=== PATIENT | female | born 1950 | race American Indian/Alaskan Native ===

== ENCOUNTER 2017-06-29 11:38 | Inpatient (IN) | payer SELFPAY ==
[2017-06-29 12:37] LABS: Basophils % (Auto) 0.2 % (0.0-1.8); Eosinophils % (Auto) 1.4 % (0.0-4.3); Hematocrit 36.3 % (30.3-42.9); Hemoglobin 12.3 gm/dl (10.1-14.3); Mean Corpuscular HGB Conc 34 % (30-34); Mean Corpuscular Hemoglobin 34 pg (28-32); Mean Corpuscular Volume 101 fl (79-97); Platelet Count 206 K/mm3 (140-440); Red Cell Distribution Width 12.7 % (13.2-15.2); White Blood Count 7.3 K/mm3 (4.5-11.0)
[2017-06-29 12:40] LABS: Anion Gap 17 mmol/L; BUN/Creatinine Ratio 17.14; Blood Urea Nitrogen 12 mg/dL (7-17); Calcium 9.5 mg/dL (8.4-10.2); Carbon Dioxide 29 mmol/L (22-30); Chloride 99.9 mmol/L (98-107); Glucose 110 mg/dL (65-100); Potassium 4.7 mmol/L (3.6-5.0); Sodium 141 mmol/L (137-145)
[2017-06-29] MEDS ORDERED: BABY ASPIRIN PO ONE (13:58)
[2017-06-29] MEDS ORDERED: APRESOLINE IV ONE (13:58)
[2017-06-29] MEDS ORDERED: ASPIRIN ONE (13:58)
--- NOTE | 2017-06-29 14:13 | Emergency Department Report ---
HPI - General Chief Complaint: Chest Pain Time Seen by Provider: 06/29/17 13:41 - HPI HPI: This is a 67-year-old Afro-[place] female presents to the emergency department , dropped off by her son, with complaint of midsternal and left-sided chest pain has been going since last night as well as very elevated blood pressure. The patient says that she had a history of blood pressure diagnosed one time here at [facility] but has never been on any blood pressure medications. She also does not see a primary care physician and has not for many years. She denies tobacco or illicit drug use or abuse. She says that she generally cooks for herself and eats healthy. She did not take anything for her symptoms other than drinking red tea and that did not help. The pain appears to increase with certain movements. She does admit to some stress at home regarding her family and her children. The pain is a pressure sensation that radiates towards the neck and back. No recent travel or sick contacts at home. ED Past Medical Hx - Past Medical History Previous Medical History?: No - Surgical History Past Surgical History?: No - Social History Smoking Status: Never Smoker Substance Use Type: None - Medications Home Medications: Home Medications Medication Instructions Recorded Confirmed Last Taken Type No Known Home Medications [No 06/29/17 06/29/17 Unknown History Reported Home Medications] ED Review of Systems ROS: Stated complaint: CHEST PAIN Other details as noted in HPI Comment: All other systems reviewed and negative Constitutional: denies: chills, fever Eyes: denies: eye pain, eye discharge, vision change ENT: denies: ear pain, throat pain Respiratory: denies: cough, wheezing Cardiovascular: chest pain. denies: edema Gastrointestinal: denies: abdominal pain, nausea, diarrhea Genitourinary: denies: urgency, dysuria, discharge Musculoskeletal: denies: back pain, joint swelling, arthralgia Skin: denies: rash, lesions Neurological: denies: headache, weakness, paresthesias Physical Exam - Physical Exam Vital Signs: Vital Signs 06/29/17 06/29/17 06/29/17 11:50 13:28 14:09 Temperature 97.5 F L Pulse Rate 57 L 53 L Respiratory 20 Rate Blood Pressure 231/103 199/104 Blood Pressure 228/100 [Right] O2 Sat by Pulse 100 Oximetry Physical Exam: GENERAL: The patient is well-developed well-nourished. HEENT: Normocephalic. Atraumatic. Extraocular motions are intact. Patient has moist mucous membranes. NECK: Supple. No meningitic signs are noted. There is no adenopathy noted. CHEST/LUNGS: Clear to auscultation. There is no respiratory distress noted. HEART/CARDIOVASCULAR: Regular. There is no tachycardia. There is no gallop rub or murmur. ABDOMEN: Abdomen is soft, nontender. Patient has normal bowel sounds. There is no abdominal distention. SKIN: There is no rash. There is no edema. There is no diaphoresis. NEURO: The patient is awake, alert, and oriented. The patient is cooperative. The patient has no focal neurologic deficits. The patient has normal speech. MUSCULOSKELETAL: There is no tenderness or deformity. There is no limitation range of motion. There is no evidence of acute injury. ED Course Vital Signs 06/29/17 06/29/17 06/29/17 11:50 13:28 14:09 Temperature 97.5 F L Pulse Rate 57 L 53 L Respiratory 20 Rate Blood Pressure 231/103 199/104 Blood Pressure 228/100 [Right] O2 Sat by Pulse 100 Oximetry ED Medical Decision Making - Lab Data Result diagrams: 06/29/17 11:57 06/29/17 11:57 - EKG Data -: EKG Interpreted by Ga EKG shows normal: sinus rhythm, axis, intervals, QRS complexes, ST-T waves ( nonspecific T waves) - EKG Data When compared to previous EKG there are: previous EKG unavailable Interpretation: other (sinus rhythm, normal axis, normal rate, nonspecific T waves) - Radiology Data Radiology results: image reviewed interpreted by me: Chest x-ray did not show any acute process. Heart is normal shape and size. No effusions. No pneumothorax. No signs of pneumonia seen. - Medical Decision Making 67-year-old female presents emergency Department with chest pain, intermittent shortness of breath and presents with hypertensive urgency. She does not have a primary care doctor and has not for many years. EKG does not show any signs of ST elevation CO. Labs are so far unremarkable including negative troponin and negative d-dimer. However she'll be admitted to the hospital for further evaluation and either a stress test or cardiac consultation. She has been accepted for admission by the hospitalist, Dr. Pandey. - Differential Diagnosis CO, PE, costochondritis, pneumonia, CHF Critical Care Time: No Critical care attestation.: If time is entered above; I have spent that time in minutes in the direct care of this critically ill patient, excluding procedure time. ED Disposition Clinical Impression: Hypertensive urgency Chest pain Qualifiers: Chest pain type: unspecified Qualified Code(s): R07.9 - Chest pain, unspecified Disposition: 09 OP ADMIT IP TO THIS HOSP Is pt being admited?: Yes Condition: Stable
--- NOTE | 2017-06-29 14:23 | XRay Report ---
AP CHEST: HISTORY: chest pain AP view of the chest demonstrates a normal mediastinal and cardiac contour with clear lungs and normal bony and soft tissue structures. IMPRESSION: Unremarkable AP chest.
[2017-06-29] MEDS ORDERED: MORPHINE IV ONE (15:28)
[2017-06-29] MEDS ORDERED: MORPHINE ONE (15:51)
[2017-06-29] MEDS ORDERED: TORADOL IV ONE (16:05)
--- NOTE | 2017-06-29 18:14 | Admit Criteria Form ---
Admission Criteria Documentation: CHEST PAIN Clinical Indications for Admission to Inpatient Care (Place 'X' for any and all applicable criteria): Admission is indicated for chest pain and ANY ONE of the following(1)(2)(3)(4)(5 ): [ ]I. Angina with acute coronary syndrome (Also use Myocardial Infarction or Angina guideline) [ ]II. Hemodynamic instability [ ]III. Angina needing acute intervention as indicated by ALL of the following( 11)(12): [ ]a) Unstable angina is present as indicated by angina that is ANY ONE of the following: [ ]i) New onset [ ]ii) Nocturnal [ ]iii) Prolonged at rest [ ]iv) Progressive [ ]b) Angina warrants acute intervention as indicated by ANY ONE of the following: [ ]i) Recurrent angina (e.g, not responding as previously to treatment) [ ]ii) Angina at rest or with low-level activities despite initial medical therapy [ ]iii) New or presumably new ST-segment depression on ECG [ ]iv) Signs or symptoms of heart failure (eg, dyspnea, pulmonary edema) [ ]v) New or worsening mitral regurgitation [ ]vi) Hemodynamic instability [ ]vii) Dangerous arrhythmia (eg, sustained ventricular tachycardia) [ ]viii) History of percutaneous coronary intervention within 6 months [ ]ix) History of coronary artery bypass graft surgery [ ]x) SUNNY risk score of 2 or greater[A] [ ]xi) History of Diabetes(14) [ ]xii) High-risk cardiac ischemia findings on noninvasive testing (e.g, echocardiogram, treadmill testing, nuclear scan) [ ]xiii) Chronic renal insufficiency (ie, estimated GFR less than 60 mL/min/1.732m) [ ]xiv) Left ventricular ejection fraction less than 40% [ ]IV. Evidence of [place] (eg, cardiac biomarkers positive, ST-segment elevation on ECG) also use Myocardial Infarction Criteria Form. [ ]V. Pulmonary edema [ ]. Respiratory distress [ ]VII. Chest pain indicative of serious diagnosis other than coronary artery disease (eg, aortic dissection) [ ]VIII. Contraindications and/or Inappropriate clinical situations for Observational Care in patients with Chest Pain, when ANY ONE of the following is required: [ ]a) Patient with risk factor for pulmonary embolism, acute coronary syndrome and myocardial infarction (18) [ ]b) Patient with Pulmonary embolism require an average LOS of 4.3 days, therefore emergency department observation management is inappropriate 18,23 [ ]c) Painful condition/s in the elderly, have the highest rate of recidivism after emergency department observation management (10.8%) 20,21,22 [ ]d) Elevated cardiac biomarker requires intensive and exhaustive care (19) [X]IX. General contraindications and/or Inappropriate clinical situations for Observational Care in patients with Chest Pain, when ANY ONE of the following is required: [ ]a) Prediction of prolongation of LOS based on ANY ONE of the following may be considered as a contraindication for observational care 2, 3, 4, 5, 6, 7, 8, 9, 10, 11 [ ]i) Age > 65 yrs. [ ]ii) Patient arriving by ambulance [ ]iii) Patient with high acuity [ ]iv) Patient requiring vital sign monitoring [ ]v) Patient on IV medication [X]b) Systolic blood pressures 180mmHg 3,12 [ ]c) Patient with altered mental status including delirium and other alteration of consciousness, (3) [ ]d) Patient whose discharge disposition will be to a fpc home or rehabilitation home should not be managed in Emergency Department Observation Unit. CMS rule requires 3 days hospital stay before such placement. 3,13 [ ]e) Patient with failure to thrive due to broad array of etiologies 3,16,17 [ ]f) Inability to ambulate 3,14 Extended stay beyond goal length of stay may be needed for (1)(28): [ ]a) Specific condition diagnosed after evaluation (eg, pulmonary embolism, aortic dissection) [ ]b) Unstable angina [ ]c) Continued suspicion of acute coronary syndrome with inability to complete needed cardiac evaluation (eg, patient clinically unable to undergo stress testing) [ ]d) Myocardial infarction (Contents from ANGINA and CHEST PAIN clinical indications for admission to inpatient care have been integrated in this form) The original [employer] content created by [employer] has been revised. The portions of the content which have been revised are identified through the use of italic text or in bold, and [employer] has neither reviewed nor approved the modified material. All other unmodified content is copyright [employer]. Please see references footnoted in the original [employer] edition 2016 Admission Criteria Met: Yes
--- NOTE | 2017-06-29 22:00 | History and Physical Report ---
History of Present Illness Date of examination: 06/29/17 Date of admission: 06/29/17 15:28 Chief complaint: Chest pain since AM History of present illness: 67 y/o Female with hx of HTN not on any medicicine developed retrosternal chest pain since am.Non radiating.No diaphoresis palpitations or SOB. No exacerbating or relieving factors. Past History Past Medical History: hypertension Past Surgical History: No surgical history Social history: no significant social history, lives with family Family history: hypertension Medications and Allergies Allergies Allergy/AdvReac Type Severity Reaction Status Date / Time No Known Allergies Allergy Verified 06/29/17 11:50 Home Medications Medication Instructions Recorded Confirmed Last Taken Type No Known Home Medications [No 06/29/17 06/29/17 Unknown History Reported Home Medications] Active Meds: Active Medications Heparin Sodium (Porcine) (Heparin) 5,000 unit SUB-Q Q8HR SLADE Review of Systems All systems: negative Constitutional: no weight loss, no weight gain, no fever, no chills, no sweats, no night sweats Ears, nose, mouth and throat: no dysphagia, no hoarseness, no sore throat Cardiovascular: chest pain, no orthopnea, no palpitations, no rapid/irregular heart beat, no edema, no syncope, no lightheadedness, no shortness of breath Respiratory: no cough, no cough with sputum, no excessive sputum, no hemoptysis , no shortness of breath, no dyspnea on exertion Gastrointestinal: no abdominal pain, no nausea, no vomiting, no diarrhea, no constipation, no change in bowel habits, no hematemesis, no coffee ground emesis Genitourinary Female: no dysuria, no urinary frequency, no urgency, no stress incontinence Musculoskeletal: no neck stiffness, no neck pain, no shooting arm pain, no arm numbness/tingling, no low back pain, no shooting leg pain, no leg numbness/ tingling, no redness of joints Integumentary: no rash, no pruritis, no redness, no sores, no wounds, no jaundice, no boils, no blisters Neurological: no seizures, no syncope Psychiatric: no anxiety, no memory loss, no change in sleep habits, no sleep disturbances, no insomnia, no hypersomnia, no change in appetite, no change in libido Endocrine: no cold intolerance, no heat intolerance, no polyphagia, no excessive thirst, no polydipsia, no polyuria, no nocturia, no excessive sweating , no flushing, no weight change Hematologic/Lymphatic: no easy bruising, no easy bleeding Allergic/Immunologic: no urticaria, no allergic rhinitis, no wheezing Exam - Constitutional Vitals: Temp Pulse Resp BP Pulse Ox 98.6 F 59 L 18 205/91 97 06/29/17 21:22 06/29/17 21:22 06/29/17 21:22 06/29/17 21:22 06/29/17 21:22 General appearance: Present: no acute distress, well-nourished - EENT Eyes: Present: PERRL ENT: hearing intact, clear oral mucosa - Neck Neck: Present: supple, normal ROM - Respiratory Respiratory effort: normal Respiratory: bilateral: CTA - Cardiovascular Heart rate: 58 Rhythm: regular Heart Sounds: Present: S1 & S2. Absent: rub, click - Extremities Extremities: no ischemia, pulses intact, pulses symmetrical, No edema Peripheral Pulses: within normal limits - Abdominal General gastrointestinal: Present: soft, non-tender, non-distended, normal bowel sounds Female genitourinary: Present: normal - Integumentary Integumentary: Present: clear, warm, dry - Musculoskeletal Musculoskeletal: gait normal, strength equal bilaterally - Psychiatric Psychiatric: appropriate mood/affect, intact judgment & insight - Neurologic Neurologic: CNII-XII intact, moves all extremities - Allied Health Allied health notes reviewed: nursing, social work, case management Results - Labs CBC & Chem 7: 06/29/17 11:57 06/30/17 04:42 Labs: Laboratory Last Values WBC 7.3 K/mm3 (4.5-11.0) 06/29/17 11:57 RBC 3.60 M/mm3 (3.65-5.03) L 06/29/17 11:57 Hgb 12.3 gm/dl (10.1-14.3) 06/29/17 11:57 Hct 36.3 % (30.3-42.9) 06/29/17 11:57 MCV 101 fl (79-97) H 06/29/17 11:57 MCH 34 pg (28-32) H 06/29/17 11:57 MCHC 34 % (30-34) 06/29/17 11:57 RDW 12.7 % (13.2-15.2) L 06/29/17 11:57 Plt Count 206 K/mm3 (140-440) 06/29/17 11:57 Lymph % (Auto) 28.1 % (13.4-35.0) 06/29/17 11:57 Ritchie % (Auto) 8.7 % (0.0-7.3) H 06/29/17 11:57 Eos % (Auto) 1.4 % (0.0-4.3) 06/29/17 11:57 Baso % (Auto) 0.2 % (0.0-1.8) 06/29/17 11:57 Lymph # 2.1 K/mm3 (1.2-5.4) 06/29/17 11:57 Ritchie # 0.6 K/mm3 (0.0-0.8) 06/29/17 11:57 Eos # 0.1 K/mm3 (0.0-0.4) 06/29/17 11:57 Baso # 0.0 K/mm3 (0.0-0.1) 06/29/17 11:57 Seg Neutrophils % 61.6 % (40.0-70.0) 06/29/17 11:57 Seg Neutrophils # 4.5 K/mm3 (1.8-7.7) 06/29/17 11:57 D-Dimer 168.29 ng/mlDDU (0-234) 06/29/17 13:52 Sodium 141 mmol/L (137-145) 06/29/17 11:57 Potassium 4.7 mmol/L (3.6-5.0) 06/29/17 11:57 Chloride 99.9 mmol/L (98-107) 06/29/17 11:57 Carbon Dioxide 29 mmol/L (22-30) 06/29/17 11:57 Anion Gap 17 mmol/L 06/29/17 11:57 BUN 12 mg/dL (7-17) 06/29/17 11:57 Creatinine 0.7 mg/dL (0.7-1.2) 06/29/17 11:57 Estimated GFR > 60 ml/min 06/29/17 11:57 BUN/Creatinine Ratio 17.14 % 06/29/17 11:57 Glucose 110 mg/dL (65-100) H 06/29/17 11:57 Calcium 9.5 mg/dL (8.4-10.2) 06/29/17 11:57 Troponin T < 0.010 ng/mL (0.00-0.029) 06/29/17 17:59 Short CBC 06/29/17 Range/Units 11:57 WBC 7.3 (4.5-11.0) K/mm3 Hgb 12.3 (10.1-14.3) gm/dl Hct 36.3 (30.3-42.9) % Plt Count 206 (140-440) K/mm3 BMP 06/29/17 06/30/17 11:57 04:42 Sodium 141 142 Potassium 4.7 4.4 Chloride 99.9 101.4 Carbon Dioxide 29 27 BUN 12 19 H Creatinine 0.7 1.2 D Glucose 110 H 87 Calcium 9.5 9.6 Cardiac Enzymes 06/29/17 06/29/17 06/29/17 Range/Units 11:57 16:07 17:59 Total Creatine Kinase (30-135) units/L CK-MB (CK-2) (0.0-4.0) ng/mL Troponin T < 0.010 < 0.010 < 0.010 (0.00-0.029) ng/mL 06/29/17 06/30/17 Range/Units 22:26 04:42 Total Creatine Kinase 86 79 (30-135) units/L CK-MB (CK-2) < 1.0 < 1.0 (0.0-4.0) ng/mL Troponin T < 0.010 < 0.010 (0.00-0.029) ng/mL Liver Function 06/30/17 Range/Units 04:42 Total Bilirubin 0.60 (0.1-1.2) mg/dL AST 19 (5-40) units/L ALT 11 (7-56) units/L Alkaline Phosphatase 72 (35-129) units/L Albumin 3.9 (3.9-5) g/dL - Imaging and Cardiology EKG: report reviewed (Sinus Bradycardia 59/ min Non specific T wave abnormality) Assessment and Plan Advance Directives: Yes (Full code) VTE prophylaxis?: Chemical Plan of care discussed with patient/family: Yes - Patient Problems (1) Hypertensive urgency Current Visit: Yes Status: Acute Plan to address problem: Patient started on coreg 12.5 q12 and Amlodipine 10 mg po qd.Also Hydralazine 10 mg q3 prnIV (2) Chest pain Current Visit: Yes Status: Acute Qualifiers: Chest pain type: unspecified Ischemic chest pain type: I Qualified Code(s ): R07.9 - Chest pain, unspecified Plan to address problem: Chest pain r/o [facility] work up.DDx of GERD and costochondritis.Serial cardiac enzymes and Lexiscan in AM (3) DVT prophylaxis Current Visit: Yes Status: Acute Plan to address problem: Lovenox 40 mg sq qd
[2017-06-29] MEDS ORDERED: TYLENOL PO PRN (22:01)
[2017-06-29] MEDS ORDERED: MILK OF MAGNESIA PO PRN (22:01)
[2017-06-29] MEDS ORDERED: DULCOLAX PR PRN (22:01)
[2017-06-29] MEDS ORDERED: DILAUDID IV PRN (22:01)
[2017-06-29] MEDS ORDERED: ZOFRAN IV PRN (22:01)
[2017-06-29] MEDS: HEPARIN SUB-Q SCH (22:19)
[2017-06-29] MEDS: PERCOCET 5/325 PO PRN (22:25)
[2017-06-29] MEDS: COREG PO SCH (22:25)
[2017-06-30 00:11] LABS: Creatine Kinase 86 units/L (30-135)
[2017-06-30 00:19] LABS: Creatine Kinase MB < 1.0 ng/mL (0.0-4.0)
[2017-06-30] MEDS: HEPARIN SUB-Q SCH ×3 (06:25→23:16)
[2017-06-30] MEDS: PERCOCET 5/325 PO PRN ×2 (06:25→14:45)
[2017-06-30 06:38] LABS: Albumin 3.9 g/dL (3.9-5); Albumin/Globulin Ratio 0.9 %; BUN/Creatinine Ratio 15.83; Bilirubin,Total 0.6 mg/dL (0.1-1.2); Calcium 9.6 mg/dL (8.4-10.2); Chloride 101.4 mmol/L (98-107); Potassium 4.4 mmol/L (3.6-5.0); Total Protein 8.2 g/dL (6.3-8.2)
[2017-06-30 06:40] LABS: Creatine Kinase 79 units/L (30-135)
[2017-06-30 06:45] LABS: Creatine Kinase MB < 1.0 ng/mL (0.0-4.0)
[2017-06-30] MEDS ORDERED: LEXISCAN IV ONE ×2 (09:26→09:30)
[2017-06-30] MEDS: ZESTRIL PO SCH (11:46)
[2017-06-30] MEDS: HCTZ PO SCH (11:46)
[2017-06-30] MEDS: NORVASC PO SCH (11:46)
[2017-06-30] MEDS ORDERED: APRESOLINE IV PRN (15:16)
--- NOTE | 2017-06-30 17:58 | Progress Note ---
Assessment and Plan Assessment and plan: 67-year-old woman with no significant Past medical history who presents with chest pain found to have elevated BP SBP>200 on triage. Hypertensive urgency Optimize blood pressure medications, and hydralazine IV as needed Case management to provide her resources that she is uninsured Chest pain ACS was ruled out, MPI was done today and was negative for ischemia Chest pain is most likely due to hypertensive urgency DVT prophylaxis Lovenox 40 mg sq qd History Interval history: She continues to complain of mild headache which she describes as global, throbbing, 4 out of 10. She also has some atypical right-sided chest pain which is dull cons and goes and has actually been resolving. Hospitalist Physical - Physical exam Narrative exam: General: Patient appears well in no distress HEENT: MMM, EOMI cardiac: S1-S2 heard lungs: clear to auscultation, abdomen: soft, nontender, nondistended bowel sounds positive extremities: no edema clubbing or cyanosis Skin: no rash or lesion Neuro: no focal deficit Psych: appropriate behavior and mood, cognition intact - Constitutional Vitals: Temp Pulse Resp BP Pulse Ox 97.9 F 54 L 18 186/83 99 06/30/17 11:35 06/30/17 11:46 06/30/17 11:35 06/30/17 11:46 06/30/17 11:35 General appearance: Present: no acute distress, well-nourished Results - Labs CBC & Chem 7: 06/29/17 11:57 06/30/17 04:42 Labs: Laboratory Last Values WBC 7.3 K/mm3 (4.5-11.0) 06/29/17 11:57 RBC 3.60 M/mm3 (3.65-5.03) L 06/29/17 11:57 Hgb 12.3 gm/dl (10.1-14.3) 06/29/17 11:57 Hct 36.3 % (30.3-42.9) 06/29/17 11:57 MCV 101 fl (79-97) H 06/29/17 11:57 MCH 34 pg (28-32) H 06/29/17 11:57 MCHC 34 % (30-34) 06/29/17 11:57 RDW 12.7 % (13.2-15.2) L 06/29/17 11:57 Plt Count 206 K/mm3 (140-440) 06/29/17 11:57 Lymph % (Auto) 28.1 % (13.4-35.0) 06/29/17 11:57 Waldo % (Auto) 8.7 % (0.0-7.3) H 06/29/17 11:57 Eos % (Auto) 1.4 % (0.0-4.3) 06/29/17 11:57 Baso % (Auto) 0.2 % (0.0-1.8) 06/29/17 11:57 Lymph # 2.1 K/mm3 (1.2-5.4) 06/29/17 11:57 Waldo # 0.6 K/mm3 (0.0-0.8) 06/29/17 11:57 Eos # 0.1 K/mm3 (0.0-0.4) 06/29/17 11:57 Baso # 0.0 K/mm3 (0.0-0.1) 06/29/17 11:57 Seg Neutrophils % 61.6 % (40.0-70.0) 06/29/17 11:57 Seg Neutrophils # 4.5 K/mm3 (1.8-7.7) 06/29/17 11:57 D-Dimer 168.29 ng/mlDDU (0-234) 06/29/17 13:52 Sodium 142 mmol/L (137-145) 06/30/17 04:42 Potassium 4.4 mmol/L (3.6-5.0) 06/30/17 04:42 Chloride 101.4 mmol/L (98-107) 06/30/17 04:42 Carbon Dioxide 27 mmol/L (22-30) 06/30/17 04:42 Anion Gap 17 mmol/L 06/29/17 11:57 BUN 19 mg/dL (7-17) H 06/30/17 04:42 Creatinine 1.2 mg/dL (0.7-1.2) D 06/30/17 04:42 Estimated GFR 54 ml/min 06/30/17 04:42 BUN/Creatinine Ratio 15.83 % 06/30/17 04:42 Glucose 87 mg/dL (65-100) 06/30/17 04:42 Calcium 9.6 mg/dL (8.4-10.2) 06/30/17 04:42 Total Bilirubin 0.60 mg/dL (0.1-1.2) 06/30/17 04:42 AST 19 units/L (5-40) 06/30/17 04:42 ALT 11 units/L (7-56) 06/30/17 04:42 Alkaline Phosphatase 72 units/L (35-129) 06/30/17 04:42 Total Creatine Kinase 79 units/L (30-135) 06/30/17 04:42 CK-MB (CK-2) < 1.0 ng/mL (0.0-4.0) 06/30/17 04:42 CK-MB (CK-2) Rel Index 1.2 (0-4) 06/30/17 04:42 Troponin T < 0.010 ng/mL (0.00-0.029) 06/30/17 04:42 Total Protein 8.2 g/dL (6.3-8.2) 06/30/17 04:42 Albumin 3.9 g/dL (3.9-5) 06/30/17 04:42 Albumin/Globulin Ratio 0.9 % 06/30/17 04:42
[2017-06-30] MEDS: COREG PO SCH (20:45)
--- NOTE | 2017-07-01 03:24 | Treadmill Report ---
THALLIUM STRESS TEST LEFT VENTRICLE: Left ventricular chamber size is within normal. Perfusion study demonstrates homogeneous uptake of the tracer in all segments, no significant perfusion defects identified. Gated analysis demonstrates normal left ventricular systolic function, ejection fraction 67%. CONCLUSION: Normal myocardial perfusion study. JOB# [id number] CA/NTS
[2017-07-01] MEDS: HEPARIN SUB-Q SCH ×2 (07:21→14:00)
--- NOTE | 2017-07-01 07:56 | Discharge Summary ---
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 Hypertensive urgency Optimize blood pressure medications, and hydralazine IV as needed Case management to provide her resources that she is uninsured Chest pain ACS was ruled out, MPI was done today and was negative for ischemia Chest pain is most likely due to hypertensive urgency DVT prophylaxis Lovenox 40 mg sq qd Disposition: DC- TO HOME OR SELFCARE Time spent for discharge: 32 minutes Core Measure Documentation - Palliative Care Palliative Care/ Comfort Measures: Not Applicable - Core Measures Any of the following diagnoses?: none Exam - Constitutional Vitals: Temp Pulse Resp BP Pulse Ox 98.5 F 53 L 18 196/86 96 07/01/17 05:33 07/01/17 05:33 07/01/17 05:33 07/01/17 05:33 07/01/17 05:33 General appearance: Present: no acute distress, well-nourished - EENT Eyes: Present: PERRL ENT: hearing intact, clear oral mucosa - Neck Neck: Present: supple, normal ROM - Respiratory Respiratory effort: normal Respiratory: bilateral: CTA - Cardiovascular Heart Sounds: Present: S1 & S2. Absent: rub, click - Extremities Extremities: pulses symmetrical, No edema Peripheral Pulses: within normal limits - Abdominal General gastrointestinal: Present: soft, non-tender, non-distended, normal bowel sounds Female genitourinary: Present: normal - Integumentary Integumentary: Present: clear, warm, dry - Musculoskeletal Musculoskeletal: gait normal, strength equal bilaterally - Psychiatric Psychiatric: appropriate mood/affect, intact judgment & insight - Neurologic Neurologic: CNII-XII intact, moves all extremities Plan Follow up with: PRIMARY CARE, [Primary Care Provider] - 3-5 Days Forms: Work/School Release Form(ED), Work/School Release Form Prescriptions: amLODIPine [Norvasc] 10 mg PO QDAY #30 tablet Hydrochlorothiazide [HCTZ] 25 mg PO QDAY #30 tablet Lisinopril [Zestril TAB] 40 mg PO QDAY #30 tablet
[2017-07-01] MEDS: ZESTRIL PO SCH (13:28)
[2017-07-01] MEDS: HCTZ PO SCH (13:28)
[2017-07-01] MEDS: NORVASC PO SCH (13:28)
[2017-07-01 16:46] VITALS: BP 142/70
== END 2017-07-01 16:44 | disposition home or self-care (01) | DRG 305 ==
LOC: ED 11:38 → 4A 15:28
PROVIDERS: ADMIT Internal Medicine; ATTEND Internal Medicine
DX: I16.0 Hypertensive urgency (principal); R07.9 Chest pain, unspecified; I10 Essential (primary) hypertension; Z82.49 Family history of ischemic heart disease and other diseases of the circulatory system
CPT/HCPCS: 36415; 71010; 78452; 80048; 80053; 82550; 82553; 84484; 85025; 85379; 93005; 93010; 93017; 96374; 96375; A9502; J0360; J1170; J1644; J1885; J2270; J2405; J2785

== ENCOUNTER 2020-04-16 09:09 | Emergency (ER) | payer MEDICARE ==
[2020-04-16] MEDS ORDERED: cloNIDine 0.2 MG TAB PO ONE (10:22)
--- NOTE | 2020-04-16 10:39 | Emergency Department Report ---
HPI - General Chief Complaint: Extremity Injury, Lower Time Seen by Provider: 04/16/20 10:12 - HPI HPI: This is a 70-year-old -[place] Citizen female presents to the emergency department with complaint of some left knee pain that is been going on since when she twisted her leg accidentally. She has been ambulatory since that time but has been using an Benji wrap to the knee. She denies any skin color change, rash, or any obvious deformity. Patient has a history of hypertension but is not on any medications for it and does not follow with any primary care physicians. ED Past Medical Hx - Past Medical History Previous Medical History?: Yes Hx Hypertension: Yes Hx Congestive Heart Failure: No Hx Diabetes: No Hx Asthma: No Hx COPD: No - Surgical History Past Surgical History?: No - Social History Smoking Status: Never Smoker - Medications Home Medications: Home Medications Medication Instructions Recorded Confirmed Last Taken Type hydroCHLOROthiazide [HCTZ] 25 mg PO QDAY #30 tablet 07/01/17 Unknown Rx lisinopriL [Zestril TAB] 40 mg PO QDAY #30 tablet 07/01/17 Unknown Rx Ibuprofen [Motrin 600 MG tab] 600 mg PO Q8H PRN #15 tablet 04/16/20 Unknown Rx amLODIPine 10 mg PO QDAY #30 tablet 04/16/20 Unknown Rx ED Review of Systems ROS: Stated complaint: LFT LEG INJURY/PAIN Other details as noted in HPI Comment: All other systems reviewed and negative Constitutional: denies: chills, fever Respiratory: denies: shortness of breath Cardiovascular: denies: chest pain Gastrointestinal: denies: abdominal pain Musculoskeletal: arthralgia. denies: back pain Skin: denies: rash, change in color Neurological: denies: numbness, paresthesias Physical Exam - Physical Exam Vital Signs: Vital Signs 04/16/20 04/16/20 09:55 10:27 Temperature 98.3 F Pulse Rate 69 54 L Respiratory 16 Rate Blood Pressure 219/96 Blood Pressure 219/80 [Left] O2 Sat by Pulse 98 Oximetry Physical Exam: GENERAL: The patient is well-developed well-nourished. HENT: Normocephalic. Atraumatic. Patient has moist mucous membranes. EYES: Extraocular motions are intact. NECK: Supple. Trachea is midline. ABDOMEN: There is no abdominal distention. SKIN: Skin is warm and dry. NEURO: The patient is awake, alert, and oriented. The patient is cooperative. Normal speech. MUSCULOSKELETAL: There is mild anterior left knee tenderness to palpation but no obvious deformity. Negative anterior and posterior drawer test and no laxity with valgus or varus stress of the affected right knee. There is no limitation range of motion. ED Course Vital Signs 04/16/20 04/16/20 09:55 10:27 Temperature 98.3 F Pulse Rate 69 54 L Respiratory 16 Rate Blood Pressure 219/96 Blood Pressure 219/80 [Left] O2 Sat by Pulse 98 Oximetry ED Medical Decision Making - Medical Decision Making This patient presents with left knee pain after twisting her leg yesterday. She is neurovascularly intact. The knee joint also appears intact. X-ray does not show any fracture or dislocation but there is a small joint effusion. The patient will be placed in a knee immobilizer and given referrals for orthopedic follow-up. The patient also presents with extremely elevated blood pressure. She has a history of hypertension and does not follow with a primary care physician and is not compliant with taking medications. She was given a dose of Catapres and her blood pressure came down to a much more reasonable level. She has been on amlodipine in the past and will be restarted on this. We talked about dietary and/or lifestyle changes to make including decreased salt and caffeine intake. She will return to the ER with any worsening of her symptoms or any acute distress. Critical Care Time: No Critical care attestation.: If time is entered above; I have spent that time in minutes in the direct care of this critically ill patient, excluding procedure time. ED Disposition Clinical Impression: Asymptomatic hypertensive urgency Left knee pain Qualifiers: Chronicity: acute Qualified Code(s): M25.562 - Pain in left knee Disposition: DC-01 TO HOME OR SELFCARE Is pt being admited?: No Condition: Stable Instructions: Hypertension (ED), Arthralgia (ED) Additional Instructions: Please follow-up with a primary care physician regarding your hypertension. I am starting you on a blood pressure medication called Norvasc/amlodipine. This medication is taken once per day, usually in the morning. Try and stay away from foods that are high in salt and caffeinated products. Keep a blood pressure log. Please follow-up with an orthopedist regarding your left knee pain. I am giving you a referral for 2 different local orthopedic groups, Dr. Ferguson and [facility]. Return to the emergency department with any worsening of your symptoms or any a cute distress. Prescriptions: amLODIPine 10 mg PO QDAY #30 tablet Ibuprofen [Motrin 600 MG tab] 600 mg PO Q8H PRN #15 tablet PRN Reason: Pain Referrals: PRIMARY CARE, [Primary Care Provider] - 3-5 Days SUSAN FERGUSON MD [Staff Physician] - 3-5 Days JAJA VASQUEZ DO [Staff Physician] - 3-5 Days [facility] [Provider Group] - 3-5 Days [facility] [Provider Group] - 3-5 Days Time of Disposition: 11:36
[2020-04-16 11:17] VITALS: BP 146/74
--- NOTE | 2020-04-16 11:29 | XRay Report ---
XR knee 3V LT INDICATION / CLINICAL INFORMATION: knee pain. COMPARISON: None available. FINDINGS: BONES/JOINT(S): No acute fracture or subluxation. Mild tricompartmental DJD with a small joint effusi on. SOFT TISSUES: No significant abnormality. ADDITIONAL FINDINGS: None. Signer Name: Onur Mae MD Signed: 04/16/2020 11:24 AM Workstation Name: [id number]
== END 2020-04-16 11:47 | disposition home or self-care (01) ==
LOC: ED 09:09
DX: M25.562 Pain in left knee (principal); I16.0 Hypertensive urgency; Z79.2 Long term (current) use of antibiotics; Z79.899 Other long term (current) drug therapy

== ENCOUNTER 2020-09-30 20:13 | Emergency (ER) | payer MEDICARE ==
[2020-10-01] MEDS ORDERED: ACETAMINOPHEN 500 MG TAB PO ONE (02:04)
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
[2020-10-01 06:33] VITALS: BP 172/66
== END 2020-10-01 04:35 | disposition home or self-care (01) ==
LOC: ED 20:13
DX: M62.838 Other muscle spasm (principal); I10 Essential (primary) hypertension; Z79.899 Other long term (current) drug therapy; V49.49XA Driver injured in collision with other motor vehicles in traffic accident, initial encounter; Y93.89 Activity, other specified; Y92.488 Other paved roadways as the place of occurrence of the external cause; Y99.8 Other external cause status
CPT/HCPCS: 70450; 72125